=== PATIENT | female | born 1975 | race American Indian/Alaskan Native ===

== ENCOUNTER 2016-04-02 17:45 | Emergency (ER) | payer OTHER ==
[2016-04-02] MEDS ORDERED: SUBLIMAZE ONE (17:55)
[2016-04-02] MEDS ORDERED: ZOFRAN ONE (17:55)
[2016-04-02] MEDS ORDERED: SUBLIMAZE IV ONE ×2 (18:11→18:32)
[2016-04-02] MEDS ORDERED: NACL 0.9% 500 ML 500 ML IV ONE (18:11)
[2016-04-02] MEDS ORDERED: APRESOLINE IV ONE (18:11)
[2016-04-02] MEDS ORDERED: ZOFRAN IV ONE ×2 (18:13→21:30)
[2016-04-02] MEDS ORDERED: VALIUM IV ONE (18:32)
[2016-04-02 19:18] LABS: Basophils % (Auto) 0.7 % (0.0-1.8); Hematocrit 39.8 % (30.3-42.9); Hemoglobin 13.2 gm/dl (10.1-14.3); Mean Corpuscular HGB Conc 33 % (30-34); Mean Corpuscular Hemoglobin 31 pg (28-32); Mean Corpuscular Volume 93 fl (79-97); Platelet Count 260 K/mm3 (140-440); Red Blood Count 4.27 M/mm3 (3.65-5.03); Red Cell Distribution Width 14.8 % (13.2-15.2); White Blood Count 5.7 K/mm3 (4.5-11.0)
[2016-04-02 19:22] LABS: Alanine Aminotransferase 13 units/L (7-56); Albumin 3.8 g/dL (3.9-5); Albumin/Globulin Ratio 1.1 %; Alkaline Phosphatase 52 units/L (35-129); BUN/Creatinine Ratio 12.22; Bilirubin,Total 0.2 mg/dL (0.1-1.2); Blood Urea Nitrogen 11 mg/dL (7-17); Calcium 8.9 mg/dL (8.4-10.2); Carbon Dioxide 26 mmol/L (22-30); Chloride 100.2 mmol/L (98-107); Glucose 124 mg/dL (65-100); Lipase 30 units/L (13-60); Sodium 139 mmol/L (137-145); Total Protein 7.2 g/dL (6.3-8.2)
[2016-04-02 19:37] LABS: Anion Gap 16 mmol/L
[2016-04-02 19:50] LABS: INR 0.96 (0.87-1.13)
--- NOTE | 2016-04-02 19:54 | XRay Report ---
FINAL REPORT PROCEDURE: Abdominal series. TECHNIQUE: Abdominal series complete, including supine and upright AP views of the abdomen and frontal chest. HISTORY: Abdominal pain. COMPARISON: No prior studies are available for comparison. FINDINGS: The heart and mediastinum appear normal. The lungs are clear and well expanded. There are no pleural effusions. There is no evidence of pneumoperitoneum. The bowel gas pattern is normal. Cholecystectomy clips are present. The soft tissues are unremarkable. The regional skeleton appears intact. IMPRESSION: Previous cholecystectomy. No evidence of acute abdominal disease.
--- NOTE | 2016-04-02 20:00 | Emergency Department Report ---
HPI - General Chief Complaint: Abdominal Pain Time Seen by Provider: 04/02/16 18:03 - HPI HPI: The patient is a 41-year-old female who presents for evaluation of abdominal pain. The patient reports sudden onset of severe right lower quadrant abdominal pain at noon earlier today, currently 10 out of 10 in severity, sharp in quality, radiating into the right flank, and is exacerbated with bending or movement at the abdomen or lower back. She also reports associated nausea. The patient denies fever, vomiting, diarrhea, blood in the stool, dark tarry stool, dysuria, hematuria, flank pain, genital discharge, inability to pass flatus. ED Past Medical Hx - Past Medical History Hx Hypertension: Yes Hx GERD: Yes Hx Headaches / Migraines: Yes - Surgical History Additional Surgical History: x2, hysterectomy, ovarian torsion, tubal ligation, 4 abd surgeries, L knee - Social History Smoking Status: Never Smoker Substance Use Type: None - Medications Home Medications: Home Medications Medication Instructions Recorded Confirmed Last Taken Type Famotidine [Pepcid] 40 mg PO QDAY 04/08/14 04/02/16 04/08/14 History Triamter/Hctz 37.5-25 mg 1 tab PO QDAY 04/08/14 04/02/16 04/07/14 History [Maxzide-25] Folic Acid [Folvite] 1 mg PO QDAY 04/02/16 04/02/16 Unknown History Methotrexate(Dose Weekly Only) 2.5 mg PO QWEEK 04/02/16 04/02/16 Unknown History Naltrexone HCl/Bupropion HCl 1 each PO QDAY 04/02/16 04/02/16 Unknown History [Contrave ER 8-90 mg Tablet] Ondansetron [Zofran TAB] 4 mg PO Q8HR PRN #14 tablet 04/02/16 Unknown Rx Oxycodone HCl/Acetaminophen 1 each PO Q6HR PRN #15 tablet 04/02/16 Unknown Rx [Percocet 7.5/325 mg] Prednisone [predniSONE (Ronny) ER 5 mg PO QDAY 04/02/16 04/02/16 Unknown History TAB] ED Review of Systems ROS: Stated complaint: ABD PAIN/LEG PAIN/BACK PAIN/RT SIDE Other details as noted in HPI Constitutional: denies: fever ENT: denies: throat or neck pain Respiratory: denies: cough, shortness of breath Cardiovascular: denies: chest pain Endocrine: denies unexplained weight loss or gain Gastrointestinal: reports abdominal pain, nausea Genitourinary: denies: dysuria Musculoskeletal: denies: leg swelling Skin: denies: rash Neurological: denies: headache Hematological/Lymphatic: denies: easy bleeding or easy bruising Psych: denies sadness or hopelessness Physical Exam - Physical Exam Vital Signs: Vital Signs 04/02/16 04/02/16 04/02/16 18:04 18:20 18:29 Temperature 99.2 F Pulse Rate 123 H 98 H Respiratory 28 H 24 20 Rate Blood Pressure 143/128 132/80 [Left] O2 Sat by Pulse 100 100 93 Oximetry Physical Exam: General: well-nourished, well-developed, no acute distress Head: Normocephalic, atraumatic Eyes: normal sclera ENT: Mucous membranes are pink and moist Neck: trachea midline, neck supple, No neck stiffness, no cervical adenopathy Respiratory: Breath sounds equal bilaterally, no wheezing, rales, or rhonchi Cardio: S1 and S2 present, no murmurs, rubs, gallops, capillary refill is brisk Abdomen: Normoactive bowel sounds, soft abdomen, right lower quadrant tenderness to palpation present, patient guarding, no rebound tenderness or rigidity at this time Chest WALL/Back: right lower CVA tenderness to palpation present Musc: No pitting edema Skin: No rash Neuro: no facial drooping, normal speech Psych: Normal affect ED Course Vital Signs 04/02/16 04/02/16 04/02/16 18:04 18:20 18:29 Temperature 99.2 F Pulse Rate 123 H 98 H Respiratory 28 H 24 20 Rate Blood Pressure 143/128 132/80 [Left] O2 Sat by Pulse 100 100 93 Oximetry ED Medical Decision Making - Lab Data Result diagrams: 04/02/16 21:45 04/02/16 18:35 - Medical Decision Making The patient was seen and examined by myself. The patient is placed on a cardiac cath lab technologist and continuous pulse ox. On initial evaluation, the patient was found to be in no distress. Evaluation orders are placed. IV access is established and the patient is given 1 L normal saline fluid bolus and Zofran for nausea, and multiple doses of IV fentanyl and valium for pain. Lab results revealed a mildly elevated lactic acid of 2.1, and mild hypokalemia of 3.0, and otherwise labs were non-revealing including nml WBC, hemoglobin, hematocrit, other electrolytes, renal function, LFTs, lipase, and urinalysis. CAT scan of the abdomen exhibits a cystic structure in the right adnexal region , is negative for abscess, appendicitis, gastritis surrounding the bowel or ureter, or findings suggestive of bowel obstruction. The patient was reevaluated and reported that her pain was improved but persisted. She was given IV Dilaudid for pain. Ultrasound of the pelvis exhibits findings consistent with an ovarian cyst as well, and otherwise US was negative for findings suggestive of tubo-ovarian abscess or ovarian torsion. Repeat lactic acid was found to be 1. The patient was reevaluated and reported that her symptoms were markedly improved and nearly resolved. On reexamination she no longer has guarding, and remains negative for rebound tenderness or rigidity of the abdomen. She declines admission for observation and states that she feels improved enough to go home and would like to be discharged. As the patient is afebrile with normal WBC, with improved symptoms, and nonacute abdomen on reexamination, the patient is stable for discharge with outpatient follow-up. The patient is given follow-up and return instructions. The patient expressed understanding and agreed with the plan. The patient is discharged in stable condition. Critical care attestation.: If time is entered above; I have spent that time in minutes in the direct care of this critically ill patient, excluding procedure time. ED Disposition Clinical Impression: Acute abdominal pain in right lower quadrant Ovarian cyst Qualifiers: Laterality: right Qualified Code(s): N83.201 - Unspecified ovarian cyst, right side Disposition: DISCHARGED TO HOME OR SELFCARE Is pt being admited?: No Does the pt Need Aspirin: No Condition: Stable Instructions: Abdominal Pain (ED), Ovarian Cyst (ED) Prescriptions: Oxycodone HCl/Acetaminophen [Percocet 7.5/325 mg] 1 each PO Q6HR PRN #15 tablet PRN Reason: Pain Ondansetron [Zofran TAB] 4 mg PO Q8HR PRN #14 tablet PRN Reason: Nausea Referrals: RODRIGUEZ ISLAS MD [Primary Care Provider] - 3-5 Days [facility] [Provider Group] - 3-5 Days Time of Disposition: 21:31
[2016-04-02 20:35] LABS: Bilirubin,Urine NEG (Negative); Blood,Urine SM (Negative); Ketones,Urine NEG (Negative); Leukocyte Esterase,Urine NEG (Negative); Mucus,Urine FEW /HPF; Nitrite,Urine NEG (Negative); Urobilinogen,Urine < 2.0 mg/dL (<2.0)
--- NOTE | 2016-04-02 20:54 | Cat Scan Report ---
FINAL REPORT EXAM: CT ABDOMEN PELVIS WO CON HISTORY: RLQ pain, radiating into rt flank COMPARISON: None available. TECHNIQUE: Contiguous axial images were obtained. Additional sagittal and coronal reformatted images were obtained. FINDINGS: Mild linear atelectasis or scarring at the lung bases. Gallbladder surgically absent. Liver, spleen, pancreas are grossly unremarkable. No adrenal mass. No nephrolithiasis or hydronephrosis. Aorta and IVC are normal in caliber. No distal ureteral urinary bladder calculi. There is a right-sided pelvic phleboliths which appears to be close but separate in proximity the distal right ureter (series 3, image 152). Few additional pelvic phleboliths are present. Uterus is surgically absent. Urinary bladder is grossly unremarkable. In the right hemipelvis, there is a cystic appearing structure likely ovarian in origin measuring 4.8 x 3.9 centimeters in axial dimension. The appendix is normal in caliber measuring 5 millimeters in diameter. No adjacent fat stranding or fluid. Large and small bowel loops normal in caliber. Moderate stool throughout the majority the colon. Bony pelvis and lumbar spine are grossly intact. No free fluid or pathologic lymphadenopathy. IMPRESSION: No obstructive uropathy or urolithiasis. There are few pelvic phleboliths which appear to be separate from the distal ureters. The right adnexal region there is a cystic structure measuring 4.8 x 3.9 centimeters. This is likely ovarian in origin. Further evaluation by pelvic ultrasound suggested. Uterus is surgically absent. Large and small bowel loops are normal in caliber. The appendix is normal in caliber.
[2016-04-02] MEDS ORDERED: BENADRYL IV ONE (21:30)
[2016-04-02] MEDS ORDERED: DILAUDID IV ONE (21:30)
[2016-04-02] MEDS ORDERED: NACL 0.9% 1000 ML 1,000 ML IV ONE (21:32)
[2016-04-02 22:08] LABS: Hematocrit 36.5 % (30.3-42.9); Hemoglobin 12.2 gm/dl (10.1-14.3); Mean Corpuscular HGB Conc 33 % (30-34); Mean Corpuscular Hemoglobin 31 pg (28-32); Mean Corpuscular Volume 92 fl (79-97); Platelet Count 268 K/mm3 (140-440); Red Blood Count 3.96 M/mm3 (3.65-5.03); Red Cell Distribution Width 14.9 % (13.2-15.2); White Blood Count 5.8 K/mm3 (4.5-11.0)
--- NOTE | 2016-04-02 22:54 | Ultrasound Report ---
FINAL REPORT EXAM: US PELVIC COMPLETE HISTORY: RLQ abdominal pain COMPARISON: CT abdomen and pelvis from the same date. TECHNIQUE: Several real-time grayscale and color Doppler images were obtained. Transabdominal and transvaginal exam. Duplex imaging. FINDINGS: Uterus is surgically absent. Corresponding to the findings from earlier CT, there is a unilocular cyst measuring 3.7 x 3.5 by 3.1 centimeters. This appears to be within ovarian tissue. This is localized to the right side, presumably arising from the right ovary. Migration of left ovary cannot be excluded the patient does not have a history of left ovarian resection. The ovary measures 5.5 x 4.5 x 3.5 centimeters. Spectral analysis demonstrates vascular flow to the ovarian tissue. IMPRESSION: In the right hemipelvis, there is a soft tissue structure most compatible with an ovary. Patient has a history of prior right ovarian resection and hysterectomy. This could reflect migration of left ovary to the right hemipelvis. Within the ovary, there is a unilocular cyst measuring 3.7 centimeters. This may be physiologic given the patient's age. Followup exam within 6-8 weeks suggested to ensure stability versus resolution.
[2016-04-02 23:34] VITALS: BP 107/59
== END 2016-04-02 23:49 | disposition home or self-care (01) ==
LOC: ED 17:45
DX: N83.201 Unspecified ovarian cyst, right side (principal); R10.31 Right lower quadrant pain; I10 Essential (primary) hypertension; K21.9 Gastro-esophageal reflux disease without esophagitis; G43.909 Migraine, unspecified, not intractable, without status migrainosus
CPT/HCPCS: 36415; 74022; 74176; 76830; 76856; 80053; 81001; 82140; 83690; 83880; 84703; 85025; 85027; 85610; 85730; 87040; 93005; 93010; 96361; 96374; 96375; 96376; 99285; J1170; J1200; J2405; J3010; J3360; J7030; J7040